=== PATIENT | male | born 1975 | race Native Hawaiian/Other Pacific Islander ===

== ENCOUNTER 2019-09-30 15:34 | Emergency (ER) | payer OTHER ==
[~2019-09-30] VITALS: Ht 188 cm; Wt 176.9 kg
[2019-09-30 16:08] VITALS: TEMP 97.7
[2019-09-30] MEDS ORDERED: ZESTRIL40 MG PO (16:27)
[2019-09-30] MEDS ORDERED: RANI150T78 PO (16:28)
[2019-09-30] MEDS ORDERED: HYDR25TA60 PO (16:28)
[2019-09-30 17:08] VITALS: BP 152/91
== END 2019-09-30 17:30 | disposition home or self-care (01) ==
LOC: ED 15:34
DX: J06.9 Acute upper respiratory infection, unspecified (principal)
CPT/HCPCS: 87502; 87651; 99283

== ENCOUNTER 2020-01-24 15:29 | Emergency (ER) | payer OTHER ==
[~2020-01-24] VITALS: Ht 188 cm; Wt 179.2 kg
[~2020-01-24 15:29] MED LIST: HYDR25TA60 PO; RANI150T78 PO; ZESTRIL40 MG PO
[2020-01-24 15:53] LABS: PLATELET COUNT 263 K/uL (142-355)
[2020-01-24 15:59] LABS: POTASSIUM 3.6 mmol/L (3.6-5.2); SODIUM 139 mmol/L (136-145)
[2020-01-24 16:14] LABS: PARTIAL THROMBOPLASTIN TIME 27.2 SECONDS (24.5-33.6)
[2020-01-24 18:55] VITALS: BP 152/91; TEMP 98.6
== END 2020-01-24 18:55 | disposition home or self-care (01) ==
LOC: ED 15:29
PROVIDERS: Student in an Organized Health Care Education/Training Program
DX: J10.00 Influenza due to other identified influenza virus with unspecified type of pneumonia (principal)
CPT/HCPCS: 80048; 83605; 83735; 83880; 84484; 85027; 85610; 85730; 87040; 87502; 87651; 93005; 96365; 96366; 96375; 99284; J0456; J0696; J1885; J2405

== ENCOUNTER 2020-10-04 22:58 | Emergency (ER) | payer OTHER ==
[~2020-10-04] VITALS: Ht 188 cm; Wt 181.4 kg
[2020-10-04 23:15] VITALS: TEMP 99.2
[2020-10-05 01:26] VITALS: BP 163/103
== END 2020-10-05 01:26 | disposition home or self-care (01) ==
LOC: ED 22:58
DX: U07.1 COVID-19 (principal); J20.9 Acute bronchitis, unspecified
CPT/HCPCS: 87502; 87635; 87651; 96372; 99283; J0696; J2930; U0003

== ENCOUNTER 2020-10-12 18:07 | Inpatient (IN) | payer OTHER ==
[~2020-10-12] VITALS: Ht 188 cm; Wt 190.6 kg
[2020-10-12 18:07] VITALS: BP 252/112; TEMP 100.6
[2020-10-12 18:54] LABS: PLATELET COUNT 263 K/uL (142-355)
[2020-10-12 20:22] VITALS: BP 214/112
[2020-10-12 20:57] VITALS: BP 178/96
[2020-10-13] VITALS (8 sets, daily range): BP systolic 127–180; BP diastolic 76–107; TEMP 98–101.2; Ht 188 cm; Wt 190.6 kg
[2020-10-13 08:08] LABS: PLATELET COUNT 259 K/uL (142-355)
[2020-10-13 08:24] LABS: POTASSIUM 3.8 mmol/L (3.6-5.2)
[2020-10-14 04:00] VITALS: BP 150/91; TEMP 98.4
[2020-10-14 05:15] LABS: POTASSIUM 4.2 mmol/L (3.6-5.2)
[2020-10-14 05:23] LABS: PLATELET COUNT 261 K/uL (142-355)
[2020-10-14 08:00] VITALS: BP 141/90; TEMP 97.8
[2020-10-14 12:00] VITALS: BP 144/94; TEMP 97.9
[2020-10-14 16:00] VITALS: BP 155/85; TEMP 97.8
[2020-10-14 20:00] VITALS: BP 152/86; TEMP 98.4
[2020-10-14 23:38] VITALS: BP 163/95; TEMP 98.5
[2020-10-15 04:00] VITALS: BP 147/87; TEMP 98.4
[2020-10-15 05:47] LABS: PLATELET COUNT 293 K/uL (142-355)
[2020-10-15 08:00] VITALS: BP 130/69; TEMP 97.6
[2020-10-15 12:00] VITALS: BP 135/93; TEMP 97.4
[2020-10-15 16:00] VITALS: BP 160/89; TEMP 98.2
[2020-10-15 19:58] VITALS: BP 163/88; TEMP 98.4
[2020-10-15 23:50] VITALS: BP 159/89; TEMP 98.4
[2020-10-16 03:42] VITALS: BP 138/85; TEMP 97.5
[2020-10-16 06:24] LABS: POTASSIUM 4.1 mmol/L (3.6-5.2)
[2020-10-16 07:23] LABS: PLATELET COUNT 260 K/uL (142-355)
[2020-10-16 08:00] VITALS: BP 153/87; TEMP 98.3
[2020-10-16 12:00] VITALS: BP 171/98; TEMP 98.4
[2020-10-16 16:00] VITALS: BP 151/79; TEMP 99.3
[2020-10-16 20:00] VITALS: BP 173/90; TEMP 98.7
[2020-10-17] VITALS: BP 171/98; TEMP 98.7
[2020-10-17 04:00] VITALS: BP 174/87; TEMP 98.4
[2020-10-17 05:11] LABS: PLATELET COUNT 318 K/uL (142-355)
[2020-10-17 05:35] LABS: POTASSIUM 3.5 mmol/L (3.6-5.2)
[2020-10-17 08:00] VITALS: BP 192/92; TEMP 97.9
[2020-10-17] MEDS ORDERED: ASCO500T18 PO (10:41)
[2020-10-17] MEDS ORDERED: PULMICORT180 MCG/AC INH (10:42)
[2020-10-17] MEDS ORDERED: FAMOTIDINE20 MG PO (10:42)
[2020-10-17] MEDS ORDERED: ZINC220C4 PO (10:43)
[2020-10-17 12:00] VITALS: BP 185/94; TEMP 98.2
[2020-10-17 14:38] VITALS: BP 129/78
[2020-10-17 16:00] VITALS: BP 155/83; TEMP 98.7
== END 2020-10-17 20:05 | disposition home or self-care (01) | DRG 177 ==
LOC: ED 18:07 → MED/SURG 20:07
PROVIDERS: Emergency Medicine Emergency Medical Services; ADMIT Internal Medicine Endocrinology, Diabetes & Metabolism; ATTEND Internal Medicine Endocrinology, Diabetes & Metabolism
DX: U07.1 COVID-19 (principal); J18.8 Other pneumonia, unspecified organism; J96.01 Acute respiratory failure with hypoxia; Z68.43 Body mass index [BMI] 50.0-59.9, adult; E87.1 Hypo-osmolality and hyponatremia; I10 Essential (primary) hypertension; K21.9 Gastro-esophageal reflux disease without esophagitis; E66.01 Morbid (severe) obesity due to excess calories; D72.828 Other elevated white blood cell count
CPT/HCPCS: 36415; 80053; 83605; 85007; 85027; 87040; 94667; 94668; 94760; 96365; 96375; 99285; J0360; J0456; J0696; J1100; J1650; J1885; J2405; J3490

== ENCOUNTER 2020-10-24 17:04 | Outpatient (CLI) | payer OTHER ==
[~2020-10-24 17:04] MED LIST changes: +ASCO500T18 PO; +FAMOTIDINE20 MG PO; +PULMICORT180 MCG/AC INH; +ZINC220C4 PO
== END 2020-10-24 22:32 | disposition home or self-care (01) ==
LOC: RAD 17:04
PROVIDERS: ATTEND Nurse Practitioner Family
DX: R06.02 Shortness of breath (principal)

== ENCOUNTER 2021-06-28 07:16 | Emergency (ER) | payer BC, OTHER ==
[~2021-06-28] VITALS: Ht 188 cm; Wt 190.5 kg
[2021-06-28 07:20] VITALS: TEMP 99.2
[2021-06-28 08:15] VITALS: BP 160/95
== END 2021-06-28 08:15 | disposition home or self-care (01) ==
LOC: ED 07:16
DX: B34.9 Viral infection, unspecified (principal); Z20.822 Contact with and (suspected) exposure to COVID-19
CPT/HCPCS: 87502; 87635; 87651; 99283; U0003